=== PATIENT | female | born 1975 | race Caucasian/White ===

== ENCOUNTER 2017-05-05 00:14 | Emergency (ER) | payer MEDICARE, OTHER ==
[~2017-05-05] VITALS: Ht 162.6 cm; Wt 73.9 kg
[~2017-05-05 00:14] MED LIST: AMBIEN; ATARAX PO; BACTRIM DS TABL1 TA1 PO; DERMACORT1 GM EXT; DIAZEPAM PO; EFFEXOR; EFFEXOR PO; EFFEXOR75 M2 PO; ERY-TAB500 MG PO; FLEXERIL10 M1 PO; FLEXERIL10 MG PO; GABAPENTIN800 MG PO; IBUPROFEN800 MG PO; IMITREX PO; KEFLEX250 M2 PO; KEPPRA100 MG/ML; KEPPRA1000 MG PO; KEPPRA750 MG PO; KLONOPIN PO; LAMICTAL; LAMICTAL PO; LAMOTRIGINE200 MG PO; LIDOCAINE VISCOU1 ML; LORTAB 10/500 T1 TAB PO; LORTAB 5/500 TA1 TA2; LORTAB 7.5-5001 TAB PO; LORTAB ELIXIR15 ML PO; MEDROL DOSEPAK4 MG PO; MEDROL PO; METOPROLOL TAR25 MG PO; MOBIC PO; MORPHINE SULFAT30 M3 PO; NABUMETONE PO; NAPROSYN500 MG PO; NEURONTIN; NEURONTIN300 MG PO; NORCO 10-325 TA1 TAB PO; NUVIGIL150 MG PO; OMEPRAZOLE20 M1 PO; PHENERGAN25 M1 PO; PREDNISONE PO; ROBAXIN500 MG PO; SKELAXIN PO; SUMATRIPTAN SU100 MG PO; TOPAMAX; TYLENOL #3 PO; VENLAFAXINE HC150 MG PO; VOLTAREN50 MG PO; VOLTAREN75 MG PO; ZANTAC150 M1 PO; ZOLOFT PO; ZOVIRAX15 GM
== END 2017-05-05 01:30 | disposition home or self-care (01) ==
LOC: SED 00:14
DX: K08.89 Other specified disorders of teeth and supporting structures (principal); F17.200 Nicotine dependence, unspecified, uncomplicated; Z88.5 Allergy status to narcotic agent
CPT/HCPCS: 99282